=== PATIENT | male | born 1930 | race Caucasian/White ===

== ENCOUNTER 2017-06-18 19:15 | Inpatient (IN) | payer MEDICARE, OTHER, MEDICAID ==
--- NOTE | 2017-06-18 19:47 | ED Physician Chart ---
ED Chief Complaint/HPI - Patient Information Date Seen:: 06/18/17 Time Seen:: 19:15 Chief Complaint:: Leg Redness History of Present Illness:: onset x 3 days of LE redness, swelling, and erythema; no report of trauma, H/as , neck pain, C/P, SOB, Abd. pain, A/N/V/D/c, fever, chills, or urinary s/s; pt' s last tetanus shot: < 5 years; UTD Allergies:: Allergies Allergy/AdvReac Type Severity Reaction Status Date / Time ibuprofen AdvReac Verified 06/18/17 19:22 meperidine HCl [From Demerol] AdvReac Verified 06/18/17 19:22 Sulfa (Sulfonamide AdvReac Verified 06/18/17 19:22 Antibiotics) Vitals:: Vital Signs - 8 hr 06/18/17 19:17 Temp 98.3 F HR 54 RR 18 BP 143/97 O2 Sat % 100 Historian:: Patient, EMS Review:: Nurse's Note Reviewed, Old Chart Reviewed, EMS run form Reviewed ED Review of Systems - Review of Systems General/Constitutional: No fever, No chills, No weight loss, No weakness, No diaphoresis, No edema, No loss of appetite Skin: Skin lesions, Rash, No bruising Head: No headache, No light-headedness Eyes: No loss of vision, No pain, No diplopia ENT: No earache, No nasal drainage, No sore throat, No tinnitus Neck: No neck pain, No swelling, No thyromegaly, No stiffness, No mass noted Cardio Vascular: No chest pain, No palpitations, No PND, No orthopnea, No edema Pulmonary: SOB, Cough, No sputum, Wheezing GI: No nausea, No vomiting, No diarrhea, No pain, No melena, No hematochezia, No constipation, No hematemesis G/U: No dysuria, No frequency, No hematuria, No nacturia Musculoskeletal: No bone or joint pain, No back pain, No muscle pain Endocrine: No polyuria, No polydipsia Psychiatric: Prior psych history, No depression, Anxiety, No suicidal ideation, No homicidal ideation, Auditory hallucination, No visual hallucination Hematopoietic: No bruising, No lymphadenopathy Allergic/Immuno: No urticaria, No angioedema Neurological: No syncope, No focal symptoms, No weakness, No paresthesia, No headache, No seizure, No dizziness, Confusion, No vertigo ED Past Medical History - Past Medical History Obtainable: Yes Past Medical History: HTN, CAD, Asthma/COPD, Dyslipidemia, Thyroid disorder, Dementia Family History: HTN, Cancer Social History: Smoker, No Alcohol, No Drug Use, , Care Facility Surgical History: Pacemaker Psychiatricy History: Schizophrenia, Dementia Medication: Reviewed Family Medical History - Family Member Mother History Unknown: Yes Ethnicity: Unknown Living Status: Unknown Hx Family Cancer: No Hx Family Coronary Artery Disease: No Hx Family Congestive Heart Failure: No Hx Family Hypertension: No Hx Family Stroke: No Hx Family Diabetes: No Hx Family Seizures: No Hx Family Dementia: No Hx Family AIDS: No Hx Family HIV: No Hx Family COPD: No Hx Family Hepatitis: No Hx Family Psychiatric Problems: No Hx Family Tuberculosis: No ED Physical Exam - Physical Examination General/Constitutional: Awake, Well-developed, well-nourished, Alert, No distress, GCS 15, Non-toxic appearing, Ambulatory Head: Atraumatic Eyes: Lids, conjuctiva normal, PERRL, EOMI Other Eyes comments:: + LE Cellulitis Skin: Nl inspection, No rash, No skin lesions, No ecchymosis, Well hydrated, No lymphadenopathy ENMT: External ears, nose nl, TM canals nl, Nasal exam nl, Lips, teeth, gums nl , Oropharynx nl, Tonsils nl Neck: Nontender, Full ROM w/o pain, No JVD, No nuchal rigidity, No bruit, No mass, No stridor Respiratory: Nl effort/Exclusion, Clear to Auscultation, No Wheeze/Rhonchi/Rales Cardio Vascular: RRR, No murmur, gallop, rubs, NL S1 S2, Carotid/Femoral/Distal pulses equal bilaterally GI: No tenderness/rebounding/guarding, No organomegaly, No hernia, Normal BS's, Nondistended, No mass/bruits, No McBurney tenderness : No CVA tenderness Extremities: No tenderness or effusion, Full ROM, normal strength in all extremities, No edema, Normal digits & nails Neuro/Psych: Alert/oriented, DTR's symmetric, Normal sensory exam, Normal motor strength, Judgement/insight normal, Mood normal, Normal gait, No focal deficits Misc: Normal back, No paraspinal tenderness ED Labs/Radiology/EKG Results - Lab Results Comments:: unremarkable - Radiology Results Comments:: NAD - EKG Interpretations EKG Time:: 19:52 Rate & Rhythm: 53; SB Comments:: non-specific st-t changes ED Septic Shock - . Is Septic Shock (SBP<90, OR Lactate>4 mmol\L) present?: No - <6hrs of presentation: Vital Signs: Vital Signs - 8 hr 06/18/17 19:17 Temp 98.3 F HR 54 RR 18 BP 143/97 O2 Sat % 100 ED Reassessment (Disposition) - Reassessment Reassessment Condition:: Improved - Diagnosis Diagnosis:: Cellulitis; LE Cellulitis; Sepsis - Aftercare/Follow up Instructions Aftercare/Follow-Up Instructions:: Counseled pt regarding lab results/diagnosis & need follow up, Counseled pt & family regarding lab results/diagnosis & need follow up - Patient Disposition Discharge/Transfer:: Acute Care w/in this hosp Accepting Physician:: Dr. Gant Time Called:: 2099 Time Responded:: 21:00 Admitted to:: Med/Surg Spoke to:: Dr. Gant Admitting Medical Physician:: Dr. Gant Condition at Disposition:: Stable, Improved
[2017-06-18] MEDS ORDERED: cefTRIAXone 1 GM in Sodium Chloride 0.9% 50 ML IV ONE (19:50)
[2017-06-18 20:10] LABS: % BASOPHILS 0.9 % (0.0-2.0); % EOSINOPHILS 2.7 % (0.0-5.0); % LYMPHOCYTES 20.3 % (20.0-50.0); % MONOCYTES 11.2 % (2.0-10.0); % NEUTROPHILS 64.9 % (40.0-80.0); BASOPHILE ABSOLUTE 0.1 Th/cumm (0-0.2); EOSINOPHILE ABSOLUTE 0.2 Th/cmm (0.1-0.4); HEMOGLOBIN 12.9 gm/dL (12-16); LYMPHOCYTE ABSOLUTE 1.3 Th/cmm (1.5-3.0); MEAN CELL VOLUME 96.8 fl (80-99); MEAN CORPUSCULAR HEMOGLOBIN 31.9 pg (27.0-31.0); MEAN CORPUSCULAR HGB CONC 32.9 pg (28.0-36.0); MEAN PLATELET VOLUME 8.8 fl; MONOCYTE ABSOLUTE 0.7 Th/cmm (0.3-1.0); NEUTROPHILE ABSOLUTE 3.9 Th/cmm (1.8-8.0); PLATELET COUNT 190 Th/cmm (150-400); RED BLOOD COUNT 4.03 Mil/cmm (3.80-5.80); RED CELL DISTRIBUTION WIDTH 14.1 % (11.5-20.0); WHITE BLOOD COUNT 6.2 Th/cmm (4.8-10.8)
[2017-06-18 20:17] LABS: ALB/GLOB RATIO 1.4 (1.0-1.8); ALBUMIN 4.2 gm/dL (4.2-5.5); ALKALINE PHOSPHATASE 61 U/L (34-104); ANION GAP 12.2 (7.0-16.0); BILIRUBIN,TOTAL 0.5 mg/dL (0.3-1.0); BUN - UREA NITROGEN 31 mg/dL (7-25); CALCIUM SERUM 9.4 mg/dL (8.6-10.3); CARBON DIOXIDE 24.9 mEq/L (21.0-31.0); CHLORIDE 105 mEq/L (98-107); CREATININE - SERUM 1.1 mg/dL (0.7-1.3); CREATININE KINASE 104 U/L (30-223); GLUCOSE 114 mg/dL (70-105); POTASSIUM SERUM 4.1 mEq/L (3.5-5.1); SGOT 14 U/L (13-39); SGPT/ALT 11 U/L (7-52); SODIUM SERUM 138 mEq/L (136-145); TOTAL PROTEIN,SERUM 7.2 gm/dL (6.0-8.3)
[2017-06-18 20:20] LABS: INR 1.02 (0.5-1.4); PROTHROMBIN TIME (TEST) 10.6 SECONDS (9.5-11.5)
[2017-06-18] MEDS ORDERED: Magnesium Hydroxide (MOM) 30 mL UDC PO PRN (21:41)
[2017-06-18] MEDS ORDERED: Maalox 30 mL Cup PO PRN (21:44)
[2017-06-18] MEDS ORDERED: Ipratropium Neb 0.5 mg/2.5 mL UD IH PRN (21:44)
[2017-06-18] MEDS ORDERED: Albuterol Nebulizer 2.5mg/3mL IH PRN (21:44)
[2017-06-18] MEDS ORDERED: guaiFENesin 200 MG/10 ML UDC PO PRN (22:47)
[2017-06-19] MEDS: D5-0.9%NS 1,000 ML IV SCH ×2 (00:21→21:37)
[2017-06-19 04:52] VITALS: BP 139/55
[2017-06-19 06:50] LABS: % BASOPHILS 0.8 % (0.0-2.0); % EOSINOPHILS 3.5 % (0.0-5.0); % LYMPHOCYTES 28.4 % (20.0-50.0); % MONOCYTES 11.1 % (2.0-10.0); % NEUTROPHILS 56.2 % (40.0-80.0); EOSINOPHILE ABSOLUTE 0.2 Th/cmm (0.1-0.4); HEMATOCRIT 35.9 % (41.0-60); HEMOGLOBIN 12.1 gm/dL (12-16); LYMPHOCYTE ABSOLUTE 1.6 Th/cmm (1.5-3.0); MEAN CORPUSCULAR HGB CONC 33.7 pg (28.0-36.0); MEAN PLATELET VOLUME 8.9 fl; MONOCYTE ABSOLUTE 0.6 Th/cmm (0.3-1.0); NEUTROPHILE ABSOLUTE 3.3 Th/cmm (1.8-8.0); PLATELET COUNT 177 Th/cmm (150-400); RED BLOOD COUNT 3.78 Mil/cmm (3.80-5.80); RED CELL DISTRIBUTION WIDTH 13.8 % (11.5-20.0); WHITE BLOOD COUNT 5.7 Th/cmm (4.8-10.8)
[2017-06-19] MEDS: Levothyroxine 0.05 Mg Tab PO SCH (07:02)
[2017-06-19 07:10] LABS: ALB/GLOB RATIO 1.2 (1.0-1.8); ALBUMIN 3.3 gm/dL (4.2-5.5); ALKALINE PHOSPHATASE 50 U/L (34-104); ANION GAP 11.8 (7.0-16.0); BILIRUBIN,TOTAL 0.7 mg/dL (0.3-1.0); BUN - UREA NITROGEN 23 mg/dL (7-25); CALCIUM SERUM 8.4 mg/dL (8.6-10.3); CARBON DIOXIDE 19.7 mEq/L (21.0-31.0); CHLORIDE 109 mEq/L (98-107); CREATININE - SERUM 0.9 mg/dL (0.7-1.3); GLUCOSE 98 mg/dL (70-105); POTASSIUM SERUM 3.5 mEq/L (3.5-5.1); SGOT 12 U/L (13-39); SGPT/ALT 8 U/L (7-52); SODIUM SERUM 137 mEq/L (136-145)
--- NOTE | 2017-06-19 07:32 | Diagnostic Imaging Report ---
Bilateral lower extremity DVT study HISTORY: Swelling, rule out DVT COMPARISON: None Technique: Longitudinal and transverse sonographic images of the bilateral lower extremity veins were obtained with doppler analysis. FINDINGS: There is normal compressibility, augmentation and phasicity of the bilateral common femoral, superficial femoral, popliteal, and posterior tibial veins. No thrombus is visualized. IMPRESSION: No evidence of thrombus within the bilateral lower extremity veins.
--- NOTE | 2017-06-19 07:36 | Diagnostic Imaging Report ---
CHEST X-RAY: AP view INDICATION: pain COMPARISON: 08/18/2014 FINDINGS: Exam is limited due to body habitus. A left chest wall pacemaker is seen with lead in the region of the right ventricle. There is also evidence of median sternotomy. Increased interstitial lung markings are seen. Increased bibasilar lung markings are also noted. No definite effusions. Mild cardiomegaly is noted. Degenerative changes of the spine are noted. Left shoulder arthroplasty is noted. Skin fold is seen along the left upper thorax. No evidence of pneumothorax. IMPRESSION: Limited exam due to body habitus. Status post median sternotomy and left chest wall pacemaker placement when compared to prior exam. Please correlate with surgical history. Increased bibasilar lung markings, which may be chronic. Superimposed infiltrate cannot be excluded. Recommend clinical correlation. If indicated, CT would provide additional detail and assessment. Mild cardiomegaly.
[2017-06-19] MEDS: Ipratropium Neb 0.5 mg/2.5 mL UD IH SCH ×4 (07:55→18:51)
[2017-06-19] MEDS: Albuterol Nebulizer 2.5mg/3mL HHN SCH ×4 (07:55→18:51)
[2017-06-19] MEDS ORDERED: VTE Chemical Prophylaxis Screen/Admission MC PRN (08:15)
[2017-06-19] MEDS ORDERED: Theophylline 100 mg ER Tab PO SCH (09:00)
[2017-06-19] MEDS: Multivitamin Tab PO SCH (09:21)
[2017-06-19] MEDS: Fish Oil 1,000 MG SGL PO SCH (09:21)
[2017-06-19] MEDS: Polyvinyl Alcohol Ophth Soln 15 mL Bottle EACH EYE SCH ×2 (09:34→16:38)
[2017-06-19] MEDS ORDERED: Pneumococcal Vaccine 0.5 mL Vial IM ONE (10:00)
--- NOTE | 2017-06-19 11:27 | Internal Medicine Prog Note ---
Internal Medicine Subjective - Subjective Service Date: 06/19/17 ([id number] hnp dictated) Internal Medicine Objective - Results Result Diagrams: 06/19/17 06:00 06/19/17 06:00 Recent Labs: Laboratory Last Values WBC 5.7 Th/cmm (4.8-10.8) 06/19/17 06:00 RBC 3.78 Mil/cmm (3.80-5.80) L 06/19/17 06:00 Hgb 12.1 gm/dL (12-16) 06/19/17 06:00 Hct 35.9 % (41.0-60) L 06/19/17 06:00 MCV 95.0 fl (80-99) 06/19/17 06:00 MCH 32.0 pg (27.0-31.0) H 06/19/17 06:00 MCHC Differential 33.7 pg (28.0-36.0) 06/19/17 06:00 RDW 13.8 % (11.5-20.0) 06/19/17 06:00 Plt Count 177 Th/cmm (150-400) 06/19/17 06:00 MPV 8.9 fl 06/19/17 06:00 Neutrophils % 56.2 % (40.0-80.0) 06/19/17 06:00 Lymphocytes % 28.4 % (20.0-50.0) 06/19/17 06:00 Monocytes % 11.1 % (2.0-10.0) H 06/19/17 06:00 Eosinophils % 3.5 % (0.0-5.0) 06/19/17 06:00 Basophils % 0.8 % (0.0-2.0) 06/19/17 06:00 PT 10.6 SECONDS (9.5-11.5) 06/18/17 19:45 INR 1.02 (0.5-1.4) 06/18/17 19:45 PTT (Actin FS) 29.0 SECONDS (26.0-38.0) 06/18/17 19:45 Sodium 137 mEq/L (136-145) 06/19/17 06:00 Potassium 3.5 mEq/L (3.5-5.1) 06/19/17 06:00 Chloride 109 mEq/L (98-107) H 06/19/17 06:00 Carbon Dioxide 19.7 mEq/L (21.0-31.0) L 06/19/17 06:00 Anion Gap 11.8 (7.0-16.0) 06/19/17 06:00 BUN 23 mg/dL (7-25) 06/19/17 06:00 Creatinine 0.9 mg/dL (0.7-1.3) 06/19/17 06:00 Est GFR ( Amer) TNP 06/19/17 06:00 Est GFR (Non-Af Amer) TNP 06/19/17 06:00 BUN/Creatinine Ratio 25.6 06/19/17 06:00 Glucose 98 mg/dL (70-105) 06/19/17 06:00 Whole Bld Lactic Acid 1.10 mmol/L (0.60-1.99) 06/18/17 19:45 Calcium 8.4 mg/dL (8.6-10.3) L 06/19/17 06:00 Total Bilirubin 0.7 mg/dL (0.3-1.0) 06/19/17 06:00 AST 12 U/L (13-39) L 06/19/17 06:00 ALT 8 U/L (7-52) 06/19/17 06:00 Alkaline Phosphatase 50 U/L (34-104) 06/19/17 06:00 Creatine Kinase 104 U/L (30-223) 06/18/17 19:45 Troponin I 0.02 ng/mL (0.01-0.05) 06/18/17 19:45 B-Natriuretic Peptide 298.0 pg/mL (5.0-100.0) H 06/19/17 06:00 Total Protein 6.0 gm/dL (6.0-8.3) 06/19/17 06:00 Albumin 3.3 gm/dL (4.2-5.5) L 06/19/17 06:00 Globulin 2.7 gm/dL 06/19/17 06:00 Albumin/Globulin Ratio 1.2 (1.0-1.8) 06/19/17 06:00 - Physical Exam Vitals and I&O: Vital Signs Temp 97.3 F 06/19/17 08:47 Pulse 56 06/19/17 09:37 Resp 16 06/19/17 09:34 BP 110/60 06/19/17 09:37 Pulse Ox 96 06/19/17 08:47 Intake & Output 06/18/17 06/19/17 06/19/17 18:59 06:59 18:59 Intake Total 50 Balance 50 Weight (lbs) 188 lb 1.6 oz Intake: Intake, IV Amount 50 cefTRIAXone 1 gm In 50 Sodium Chloride 0.9% 50 ml @ 100 mls/hr IV X1 ONE Rx#:[id number] Other: # Voids 1 Weight Source Bedscale Active Medications: Current Medications Acetaminophen (Tylenol) 650 mg PO Q4HR PRN PRN Reason: Pain Or Fever above 101 Stop: 08/17/17 21:43 Al Hydrox/Mg Hydrox/Simethicone (Maalox) 30 ml PO Q6HR PRN PRN Reason: Dyspepsia Stop: 08/17/17 21:43 Albuterol Sulfate (Albuterol 2.5mg/3ml Neb Ud) 2.5 mg IH Q2HR PRN PRN Reason: Shortness of Breath or Wheeze Stop: 08/17/17 21:43 Albuterol Sulfate (Albuterol 2.5mg/3ml Neb Ud) 2.5 mg HHN QIDRT [facility] Stop: 08/18/17 06:59 Last Admin: 06/19/17 07:55 Dose: 2.5 mg Amlodipine Besylate (Norvasc) 5 mg PO DAILY [facility] Stop: 08/18/17 08:59 Last Admin: 06/19/17 09:37 Dose: 5 mg Artificial Tears (Artificial Tears Ophth Soln) 1 drop EACH EYE BID [facility] Stop: 08/18/17 08:59 Last Admin: 06/19/17 09:34 Dose: 1 drop Baclofen (Lioresal) 10 mg PO HS [facility] Stop: 08/18/17 20:59 Docusate Sodium (Colace) 100 mg PO BID [facility] Stop: 08/18/17 08:59 Last Admin: 06/19/17 09:21 Dose: 100 mg Donepezil HCl (Aricept) 5 mg PO HS [facility] Stop: 08/18/17 20:59 Duloxetine HCl (Cymbalta) 30 mg PO DAILY [facility] PRN Reason: Protocol Stop: 08/18/17 08:59 Last Admin: 06/19/17 09:21 Dose: 30 mg Fish Oil ([place] 3) 1,000 mg PO DAILY [facility] Stop: 08/18/17 08:59 Last Admin: 06/19/17 09:21 Dose: 1,000 mg Furosemide (Lasix) 20 mg IVP BID [facility] Stop: 08/18/17 08:59 Last Admin: 06/19/17 09:28 Dose: 20 mg Guaifenesin (Robitussin) 200 mg PO Q4HR PRN PRN Reason: Cough or Congestion Stop: 08/17/17 22:46 Heparin Sodium (Porcine) (Heparin) 5,000 units SUBQ Q12HR [facility] Stop: 08/18/17 08:59 Last Admin: 06/19/17 09:21 Dose: 5,000 units Dextrose/Sodium Chloride (D5-0.9%Ns) 1,000 mls @ 50 mls/hr IV .Q20H [facility] Stop: 08/17/17 21:44 Last Admin: 06/19/17 00:21 Dose: 50 mls/hr Ipratropium Excello (Atrovent Neb 0.5mg/2.5ml) 0.5 mg IH Q2HR PRN PRN Reason: Shortness of Breath or Wheeze Stop: 08/17/17 21:43 Ipratropium Excello (Atrovent Neb 0.5mg/2.5ml) 0.5 mg IH QIDRT [facility] Stop: 08/18/17 06:59 Last Admin: 06/19/17 07:55 Dose: 0.5 mg Levothyroxine Sodium (Synthroid) 0.05 mg PO QDAC [facility] Stop: 08/18/17 07:29 Last Admin: 06/19/17 07:02 Dose: 0.05 mg Lorazepam (Ativan) 1 mg IV Q4HR PRN; Protocol PRN Reason: Anxiety Stop: 08/17/17 21:43 Magnesium Hydroxide (Milk Of Magnesia) 30 ml PO HS PRN PRN Reason: Constipation Stop: 08/17/17 21:40 Miscellaneous (Vte Chemical Prophylaxis Screen/ Admission) 1 ea [facility] PRN PRN PRN Reason: PROTOCOL Stop: 08/18/17 08:14 Multivitamins/Vitamin C (Theragran) 1 tab PO DAILY [facility] Stop: 08/18/17 08:59 Last Admin: 04/26/18 09:21 Dose: 1 tab Nitroglycerin (Nitrostat) 0.4 mg SL Q5MIN PRN PRN Reason: Chest Pain Stop: 08/17/17 22:46 Ondansetron HCl (Zofran) 4 mg IV Q8H PRN PRN Reason: Nausea / Vomiting Stop: 08/17/17 22:46 Simvastatin (Zocor) 20 mg PO HS [facility] Stop: 08/18/17 20:59 Tamsulosin HCl (Flomax) 0.4 mg PO HS [facility] Stop: 08/18/17 20:59 - Procedures Procedures: Procedures Procedure Code Date OTHER GROUP THERAPY 94.44 08/12/14
--- NOTE | 2017-06-19 14:49 | History & Physical ---
ADMIT DATE: 06/19/2017 DICTATED FOR: Dr. Anibal Gant CHIEF COMPLAINT: Bilateral leg redness. HISTORY OF PRESENT ILLNESS: This is an 86-year-old male who is well known to me from [facility], was brought here to [facility] due to a 3-day history of bilateral lower extremity swelling associated with redness and pain. The patient did not have any fevers at the [facility]. For further management, the patient is now admitted here to the telemetry unit. PAST MEDICAL HISTORY: Hypertension, hyperlipidemia, arthritis, depression, constipation and dementia. PAST SURGICAL HISTORY: Pacemaker. ALLERGIES: IBUPROFEN, MEPERIDINE, HYDROCHLORIDE, AND SULFA. FAMILY HISTORY: Noncontributory. SOCIAL HISTORY: The patient is a [facility] resident, requiring 24-hour nursing care. REVIEW OF SYSTEMS: GENERAL: Denies any fevers and chills. CARDIOVASCULAR: Denies any chest pain. RESPIRATORY: Denies shortness of breath. GASTROINTESTINAL: Denies nausea, vomiting, abdominal pain. GENITOURINARY: Denies increased work of dysuria. NEUROLOGIC: No headaches, seizures or syncope. All other systems are reviewed and are negative. PHYSICAL EXAMINATION: GENERAL: This is an elderly male, awake, alert, in no apparent distress. VITAL SIGNS: Temperature 97.3, heart rate 50, blood pressure 107/58, respirations 17, O2 96%. HEENT: Head normocephalic, atraumatic. NECK: Supple. No mass. LUNGS: Few rhonchi. HEART: Regular rate and rhythm. ABDOMEN: Soft, nontender. LABORATORY DATA: WBC 5.7, H and H 11.1 and 35.9, platelets of 177. Sodium 137, potassium 3.5, chloride 109, BUN 23, creatinine of 0.9, BNP of 298, albumin of 3.3. DIAGNOSTIC DATA: The patient had a lower extremity ultrasound done and the impression is no evidence of thrombus within the bilateral lower extremity veins. The patient also had a chest x-ray done and the impression is status post median sternotomy and left chest wall pacemaker placement. When compared to prior exam. increased bibasilar lung markings which may be chronic, superimposed infiltrate cannot be excluded, mild cardiomegaly. ASSESSMENT: Acute CHF exacerbation, bilateral lower extremity pain, acute dehydration, mild protein calorie malnutrition, generalized weakness, hypertension, hyperlipidemia, hypothyroidism, arthritis, dementia. PLAN: The patient to be admitted to the telemetry unit. Keep the patient on IV fluids for hydration. We will monitor the patient's BUN and creatinine. We will get a followup chest x-ray for tomorrow morning. The patient to be on a low sodium diet. We will get psychiatry on the case. We will continue to monitor this patient. JOB# [id number]
--- NOTE | 2017-06-19 15:24 | Cardiology ---
06/18/2017 ECHOCARDIOGRAM REPORT The patient of Dr. Gant. M-MODE ECHOCARDIOGRAM: Mitral valve, anterior leaflet of mitral valve shows normal excursion, EF velocity. Posterior leaflet of the mitral valve shows normal excursion. Left ventricular posterior wall shows increased thickness, normal excursion. Interventricular septum shows increased thickness, normal excursion, hypertrophy of the left ventricle, ejection fraction 50%. Left atrium enlarged 4.8 cm. Aortic root shows normal dimension, normal excursion of aortic leaflets. CONCLUSION: Minimal hypertrophy of the left ventricle. Left atrial enlargement, ejection fraction 50%. 2D ECHO ON THE SAME PATIENT: Long axis view shows normal-sized left ventricle with hypertrophy of the left ventricle. Left atrium enlarged. Aortic root shows normal dimension, normal excursion of aortic leaflets. Short axis view of mitral valve normal. Short axis view of aortic valve normal. Apical four chamber view showed normal-sized left ventricle with hypertrophy of the left ventricle. Left atrium enlarged. Right ventricular cavity, right atrium normal, no pericardial effusion. CONCLUSION: Minimal hypertrophy of the left ventricle. Left atrial enlargement, ejection fraction 50%. Doppler study shows prominent area consistent with poor compliance of left ventricle. The patient has mild tricuspid regurgitation, moderate pulmonary regurgitation, right ventricular systolic pressure 32 mmHg. [facility]# [id number]
[2017-06-20 05:55] LABS: % BASOPHILS 0.4 % (0.0-2.0); % EOSINOPHILS 4.9 % (0.0-5.0); % LYMPHOCYTES 23.4 % (20.0-50.0); % MONOCYTES 9.5 % (2.0-10.0); % NEUTROPHILS 61.8 % (40.0-80.0); EOSINOPHILE ABSOLUTE 0.3 Th/cmm (0.1-0.4); HEMATOCRIT 36.3 % (41.0-60); HEMOGLOBIN 12.3 gm/dL (12-16); LYMPHOCYTE ABSOLUTE 1.4 Th/cmm (1.5-3.0); MEAN CORPUSCULAR HEMOGLOBIN 32.6 pg (27.0-31.0); MEAN PLATELET VOLUME 8.8 fl; MONOCYTE ABSOLUTE 0.6 Th/cmm (0.3-1.0); NEUTROPHILE ABSOLUTE 3.8 Th/cmm (1.8-8.0); PLATELET COUNT 180 Th/cmm (150-400); RED BLOOD COUNT 3.78 Mil/cmm (3.80-5.80); RED CELL DISTRIBUTION WIDTH 14.2 % (11.5-20.0); WHITE BLOOD COUNT 6.1 Th/cmm (4.8-10.8)
[2017-06-20 06:03] LABS: ANION GAP 11.3 (7.0-16.0); BUN - UREA NITROGEN 19 mg/dL (7-25); CALCIUM SERUM 8.4 mg/dL (8.6-10.3); CARBON DIOXIDE 22.1 mEq/L (21.0-31.0); CHLORIDE 109 mEq/L (98-107); GLUCOSE 103 mg/dL (70-105); POTASSIUM SERUM 3.4 mEq/L (3.5-5.1); SODIUM SERUM 139 mEq/L (136-145)
[2017-06-20] MEDS: Levothyroxine 0.05 Mg Tab PO SCH (06:48)
[2017-06-20] MEDS: Ipratropium Neb 0.5 mg/2.5 mL UD IH SCH ×4 (07:25→18:49)
[2017-06-20] MEDS: Albuterol Nebulizer 2.5mg/3mL HHN SCH ×4 (07:25→18:49)
[2017-06-20] MEDS: Fish Oil 1,000 MG SGL PO SCH (09:24)
[2017-06-20] MEDS: Multivitamin Tab PO SCH (09:24)
[2017-06-20] MEDS ORDERED: Potassium Chloride 20 mEq ER Tab PO ONE (12:48)
--- NOTE | 2017-06-20 12:53 | Internal Medicine Prog Note ---
Internal Medicine Subjective - Subjective Patient seen and examined:: with staff, chart reviewed Patient is:: awake, verbal, interactive, in bed, denies any new complaints, agitated, confused Patient Complaints of:: congestion, unable to sleep Per staff patient has:: no adverse event, no episodes of fall, poor appetite, poor oral intake, unstable gait, noncompliant, confused, tolerating meds Internal Medicine Objective - Results Result Diagrams: 06/20/17 05:40 06/20/17 05:40 Recent Labs: Laboratory Last Values WBC 6.1 Th/cmm (4.8-10.8) 06/20/17 05:40 RBC 3.78 Mil/cmm (3.80-5.80) L 06/20/17 05:40 Hgb 12.3 gm/dL (12-16) 06/20/17 05:40 Hct 36.3 % (41.0-60) L 06/20/17 05:40 MCV 96.0 fl (80-99) 06/20/17 05:40 MCH 32.6 pg (27.0-31.0) H 06/20/17 05:40 MCHC Differential 34.0 pg (28.0-36.0) 06/20/17 05:40 RDW 14.2 % (11.5-20.0) 06/20/17 05:40 Plt Count 180 Th/cmm (150-400) 06/20/17 05:40 MPV 8.8 fl 06/20/17 05:40 Neutrophils % 61.8 % (40.0-80.0) 06/20/17 05:40 Lymphocytes % 23.4 % (20.0-50.0) 06/20/17 05:40 Monocytes % 9.5 % (2.0-10.0) 06/20/17 05:40 Eosinophils % 4.9 % (0.0-5.0) 06/20/17 05:40 Basophils % 0.4 % (0.0-2.0) 06/20/17 05:40 PT 10.6 SECONDS (9.5-11.5) 06/18/17 19:45 INR 1.02 (0.5-1.4) 06/18/17 19:45 PTT (Actin FS) 29.0 SECONDS (26.0-38.0) 06/18/17 19:45 Sodium 139 mEq/L (136-145) 06/20/17 05:40 Potassium 3.4 mEq/L (3.5-5.1) L 06/20/17 05:40 Chloride 109 mEq/L (98-107) H 06/20/17 05:40 Carbon Dioxide 22.1 mEq/L (21.0-31.0) 06/20/17 05:40 Anion Gap 11.3 (7.0-16.0) 06/20/17 05:40 BUN 19 mg/dL (7-25) 06/20/17 05:40 Creatinine 1.0 mg/dL (0.7-1.3) 06/20/17 05:40 Est GFR ( Amer) TNP 06/20/17 05:40 Est GFR (Non-Af Amer) TNP 06/20/17 05:40 BUN/Creatinine Ratio 19.0 06/20/17 05:40 Glucose 103 mg/dL (70-105) 06/20/17 05:40 Whole Bld Lactic Acid 1.10 mmol/L (0.60-1.99) 06/18/17 19:45 Calcium 8.4 mg/dL (8.6-10.3) L 06/20/17 05:40 Total Bilirubin 0.7 mg/dL (0.3-1.0) 06/19/17 06:00 AST 12 U/L (13-39) L 06/19/17 06:00 ALT 8 U/L (7-52) 06/19/17 06:00 Alkaline Phosphatase 50 U/L (34-104) 06/19/17 06:00 Ammonia 43 umol/L (16-53) 06/20/17 05:40 Creatine Kinase 104 U/L (30-223) 06/18/17 19:45 Troponin I 0.02 ng/mL (0.01-0.05) 06/18/17 19:45 B-Natriuretic Peptide 298.0 pg/mL (5.0-100.0) H 06/19/17 06:00 Total Protein 6.0 gm/dL (6.0-8.3) 06/19/17 06:00 Albumin 3.3 gm/dL (4.2-5.5) L 06/19/17 06:00 Globulin 2.7 gm/dL 06/19/17 06:00 Albumin/Globulin Ratio 1.2 (1.0-1.8) 06/19/17 06:00 - Physical Exam Vitals and I&O: Vital Signs Temp 98.4 F 06/20/17 11:52 Pulse 84 06/20/17 11:52 Resp 19 06/20/17 11:52 BP 106/46 06/20/17 11:52 Pulse Ox 96 06/20/17 11:52 Intake & Output 06/19/17 06/20/17 06/20/17 18:59 06:59 18:59 Intake Total 1200 Output Total 1 Balance 1199 Weight (lbs) 85.275 kg 86.183 kg Intake: Intake, IV Amount 1000 D5-0.9%Ns 1,000 ml @ 50 1000 mls/hr IV .Q20H [facility] Rx#: [id number] Oral 200 Output: Stool 1 Other: # Voids 3 # Bowel Movements 1 Stool Characteristics Formed Weight Source Bedscale Bedscale Active Medications: Current Medications Acetaminophen (Tylenol) 650 mg PO Q4HR PRN PRN Reason: Pain Or Fever above 101 Stop: 08/17/17 21:43 Al Hydrox/Mg Hydrox/Simethicone (Maalox) 30 ml PO Q6HR PRN PRN Reason: Dyspepsia Stop: 08/17/17 21:43 Albuterol Sulfate (Albuterol 2.5mg/3ml Neb Ud) 2.5 mg IH Q2HR PRN PRN Reason: Shortness of Breath or Wheeze Stop: 08/17/17 21:43 Albuterol Sulfate (Albuterol 2.5mg/3ml Neb Ud) 2.5 mg HHN QIDRT COUNT INCLUDES THE [facility] Stop: 08/18/17 06:59 Last Admin: 06/20/17 10:51 Dose: 2.5 mg Amlodipine Besylate (Norvasc) 5 mg PO DAILY COUNT INCLUDES [facility] Stop: 08/18/17 08:59 Last Admin: 06/20/17 09:24 Dose: Not Given Artificial Tears (Artificial Tears Ophth Soln) 1 drop EACH EYE BID [facility]CCA Stop: 08/18/17 08:59 Last Admin: 06/19/17 16:38 Dose: 1 drop Baclofen (Lioresal) 10 mg PO HS COUNT INCLUDES [facility] Stop: 08/18/17 20:59 Last Admin: 06/19/17 21:35 Dose: 10 mg Docusate Sodium (Colace) 100 mg PO BID [facility] Stop: 08/18/17 08:59 Last Admin: 06/20/17 09:24 Dose: 100 mg Donepezil HCl (Aricept) 5 mg PO HS [facility] Stop: 08/19/17 20:59 Duloxetine HCl (Cymbalta) 30 mg PO DAILY [facility] PRN Reason: Protocol Stop: 08/18/17 08:59 Last Admin: 06/20/17 09:24 Dose: 30 mg Fish Oil ([place] 3) 1,000 mg PO DAILY [facility] Stop: 08/18/17 08:59 Last Admin: 06/20/17 09:24 Dose: 1,000 mg Furosemide (Lasix) 20 mg IVP BID [facility] Stop: 08/18/17 08:59 Last Admin: 06/20/17 09:23 Dose: 20 mg Guaifenesin (Robitussin) 200 mg PO Q4HR PRN PRN Reason: Cough or Congestion Stop: 08/17/17 22:46 Heparin Sodium (Porcine) (Heparin) 5,000 units SUBQ Q12HR [facility] Stop: 08/18/17 08:59 Last Admin: 06/20/17 09:22 Dose: 5,000 units Dextrose/Sodium Chloride (D5-0.9%Ns) 1,000 mls @ 50 mls/hr IV .Q20H [facility] Stop: 08/17/17 21:44 Last Admin: 06/19/17 21:37 Dose: 50 mls/hr Ipratropium [place] (Atrovent Neb 0.5mg/2.5ml) 0.5 mg IH Q2HR PRN PRN Reason: Shortness of Breath or Wheeze Stop: 08/17/17 21:43 Ipratropium [place] (Atrovent Neb 0.5mg/2.5ml) 0.5 mg IH QIDRT [facility] Stop: 08/18/17 06:59 Last Admin: 06/20/17 10:51 Dose: 0.5 mg Levothyroxine Sodium (Synthroid) 0.05 mg PO QDAC [facility] Stop: 08/18/17 07:29 Last Admin: 06/20/17 06:48 Dose: 0.05 mg Lorazepam (Ativan) 1 mg IV Q4HR PRN; Protocol PRN Reason: Anxiety Stop: 08/17/17 21:43 Magnesium Hydroxide (Milk Of Magnesia) 30 ml PO HS PRN PRN Reason: Constipation Stop: 08/17/17 21:40 Miscellaneous (Vte Chemical Prophylaxis Screen/ Admission) 1 ea [facility] PRN PRN PRN Reason: PROTOCOL Stop: 08/18/17 08:14 Multivitamins/Vitamin C (Theragran) 1 tab PO DAILY [facility] Stop: 08/18/17 08:59 Last Admin: 06/20/17 09:24 Dose: 1 tab Nitroglycerin (Nitrostat) 0.4 mg SL Q5MIN PRN PRN Reason: Chest Pain Stop: 08/17/17 22:46 Ondansetron HCl (Zofran) 4 mg IV Q8H PRN PRN Reason: Nausea / Vomiting Stop: 08/17/17 22:46 Potassium Chloride (Klor-Con) 20 meq PO X1 ONE Stop: 06/20/17 12:49 Simvastatin (Zocor) 20 mg PO HS [facility]CCA Stop: 08/18/17 20:59 Last Admin: 06/19/17 21:35 Dose: 20 mg Tamsulosin HCl (Flomax) 0.4 mg PO HS RE[facility]CCA Stop: 08/18/17 20:59 Last Admin: 06/19/17 21:35 Dose: 0.4 mg Theophylline (Oral-Dur) 100 mg PO BID [facility]CCA Stop: 08/19/17 16:59 General: demented, bilateral temporal wasting, appears older HEENT: NC/AT, PERRLA Neck: Supple, No JVD Lungs: congested, rales, ronchi Cardiovascular: RRR, with murmur, dwayne Abdomen: soft, tender, globular, positive bowel sound Extremities: excoriation, deformity Neurological: no change, disorganized, unsteady, unable to follow command, bedbound - Procedures Procedures: Procedures Procedure Code Date OTHER GROUP THERAPY 94.44 08/12/14 Internal Medicine Assmt/Plan - Assessment Assessment: acute chf exac ble edema dehydration malnutrition gen weakness htn hyper chol oa hypothroidism dwayne, pacemaker dementia - Plan Plan: cont on lasix will correct lytes card referral monitor renal function cpm pscy follow up as well ernie hill
[2017-06-20] MEDS: Potassium Chloride 20 mEq ER Tab PO SCH (14:41)
[2017-06-20] MEDS: Polyvinyl Alcohol Ophth Soln 15 mL Bottle EACH EYE SCH ×2 (15:31→16:58)
[2017-06-20] MEDS: Theophylline 100 mg ER Tab PO SCH (16:57)
[2017-06-20 19:02] LABS: A1C % 6.6 % (4.0-6.0)
--- NOTE | 2017-06-20 19:56 | Consultation ---
DATE OF CONSULTATION: 06/20/2017 REQUESTING PHYSICIAN: Anibal Gant D.O. REASON FOR CONSULTATION: Psychosis. HISTORY OF PRESENT ILLNESS: This patient is an 86-year-old from [facility]. Information obtained by directly interviewing the patient as well as reviewing the admission papers. The patient has been admitted for bilateral lower extremity swelling, redness and pain. A psychiatric consult is called to address the issue of the mood swings for the patient. Chart is reviewed. The patient is interviewed and patient is known to me from the previous psychiatric hospitalizations and treatments. The patient has been diagnosed to have psychosis and dementia and has a history of being aggressive towards the staff. At this time, the patient is cooperative. However, the patient gets easily frustrated when needs are not met. Review of the chart indicated that the patient has been getting the duloxetine 30 mg on a daily basis and the patient is reported to have been able to tolerate. PAST PSYCHIATRIC HISTORY: The patient had been hospitalized here at [facility] and the [facility] in the past for the depression. The patient is going to be closely monitored at this time with the [facility] and patient is going to be followed up. MENTAL STATUS EXAMINATION: At the time of the evaluation, the patient's mood is noted to be less irritable. Affect is appropriate. Insight and judgment at this time are noted to be improved and fair. Impulse control seems to be fair. No aggressive behavior is reported. The patient denies any auditory hallucinations or delusions are noted. However, the patient has both short-term and long-term memory deficits. DIAGNOSTIC IMPRESSION: AXIS 1: Major depressive disorder by history. AXIS 1B: Dementia and behavioral change, secondary trait. Immediate treatment plan. The patient is going to be observed on inpatient unit, provided with supportive psychotherapy. The patient is going to be closely monitored and encouraged to participate in the groups and verbalize the concerns. Once stabilized, the patient is going to be discharged to the [facility] for further care. Thank you, Dr. Gant for allowing me to participate in the care of the patient. JOB# [id number]
[2017-06-20] MEDS: D5-0.9%NS 1,000 ML IV SCH (21:12)
--- NOTE | 2017-06-20 22:01 | Consultation ---
DATE OF CONSULTATION: 06/20/[address] Gant. HISTORY OF PRESENT ILLNESS: This is an 86-year-old male patient who was transferred to the hospital with swelling both lower extremities. The patient was found to have congestive heart failure. The patient has a cardiac evaluation in view of pacemaker and congestive heart failure. No history of PND or orthopnea. PAST MEDICAL HISTORY: Congestive heart failure, diastolic dysfunction, sick sinus syndrome with pacemaker, hypertension, hypothyroid, hyperlipidemia, depression, dementia, and chronic constipation. FAMILY HISTORY: Unremarkable. SOCIAL HISTORY: No history of smoking or alcohol abuse. ALLERGIES: No known allergies. PHYSICAL EXAMINATION: VITAL SIGNS: Blood pressure 130/80, pulse 60, and respirations 28. HEAD: Normocephalic. No lumps or bumps. EYES: Pupils equal, reactive to light. Fundi showing AV nicking, sclerae white, conjunctivae pink. NECK: Carotid 2+. Normal upstroke. JVD flat. Thyroid not palpable. Lymph nodes not palpable. CHEST: Shows increased AP diameter. No kyphosis, scoliosis. LUNGS: Bilateral rales. Decreased breath sounds both the bases. HEART: PMI sixth intercostal space with lateral to midclavicular line. S1, S2, S3, S4, soft systolic murmur. ABDOMEN: Soft. Liver, spleen not palpable. No organomegaly. Bowel sounds active. NEUROLOGIC: No focal neurological deficit. EXTREMITIES: Peripheral pulses 1+. Minimal pedal edema. CLINICAL IMPRESSION: Congestive heart failure, diastolic dysfunction, acute; sick sinus syndrome with pacemaker; moderate pulmonary regurgitation; hypertension; hypothyroid; hyperlipidemia; depression; dementia; and chronic constipation. The patient had echocardiogram, which showed ejection fraction 50%. Left ventricular hypertrophy, left atrial enlargement, mild tricuspid regurgitation, moderate pulmonary regurgitation. PLAN: We will continue present care. Continue diuretics and monitor the patient. JOB# [id number]
[2017-06-21 05:46] LABS: % BASOPHILS 0.4 % (0.0-2.0); % EOSINOPHILS 3.4 % (0.0-5.0); % LYMPHOCYTES 18.6 % (20.0-50.0); % MONOCYTES 10.3 % (2.0-10.0); % NEUTROPHILS 67.3 % (40.0-80.0); EOSINOPHILE ABSOLUTE 0.3 Th/cmm (0.1-0.4); HEMATOCRIT 37.8 % (41.0-60); HEMOGLOBIN 12.9 gm/dL (12-16); LYMPHOCYTE ABSOLUTE 1.4 Th/cmm (1.5-3.0); MEAN CELL VOLUME 95.5 fl (80-99); MEAN CORPUSCULAR HEMOGLOBIN 32.5 pg (27.0-31.0); MEAN PLATELET VOLUME 8.7 fl; MONOCYTE ABSOLUTE 0.8 Th/cmm (0.3-1.0); PLATELET COUNT 180 Th/cmm (150-400); RED BLOOD COUNT 3.96 Mil/cmm (3.80-5.80); WHITE BLOOD COUNT 7.5 Th/cmm (4.8-10.8)
[2017-06-21 06:05] LABS: ANION GAP 10.8 (7.0-16.0); BUN - UREA NITROGEN 18 mg/dL (7-25); CALCIUM SERUM 8.6 mg/dL (8.6-10.3); CARBON DIOXIDE 24.5 mEq/L (21.0-31.0); CHLORIDE 110 mEq/L (98-107); GLUCOSE 106 mg/dL (70-105); MAGNESIUM 1.9 mg/dL (1.9-2.7); POTASSIUM SERUM 3.3 mEq/L (3.5-5.1); SODIUM SERUM 142 mEq/L (136-145)
[2017-06-21] MEDS: Levothyroxine 0.05 Mg Tab PO SCH (06:47)
[2017-06-21] MEDS: Albuterol Nebulizer 2.5mg/3mL HHN SCH ×4 (07:17→19:17)
[2017-06-21] MEDS: Ipratropium Neb 0.5 mg/2.5 mL UD IH SCH ×4 (07:17→19:17)
[2017-06-21] MEDS: Multivitamin Tab PO SCH (08:09)
[2017-06-21] MEDS: Polyvinyl Alcohol Ophth Soln 15 mL Bottle EACH EYE SCH ×2 (08:09→16:32)
[2017-06-21] MEDS: Fish Oil 1,000 MG SGL PO SCH (08:09)
[2017-06-21] MEDS: Theophylline 100 mg ER Tab PO SCH ×2 (08:09→16:32)
[2017-06-21] MEDS: Potassium Chloride 20 mEq ER Tab PO SCH (08:09)
[2017-06-21] MEDS ORDERED: Potassium Chloride 20 mEq ER Tab PO ONE (12:50)
[2017-06-21] MEDS: D5-0.9%NS 1,000 ML IV SCH (13:09)
--- NOTE | 2017-06-21 13:47 | Internal Medicine Prog Note ---
Internal Medicine Subjective - Subjective Service Date: 06/21/17 Patient is:: awake, verbal, interactive, in bed, denies any new complaints, agitated, confused Patient Complaints of:: congestion, unable to sleep Per staff patient has:: no adverse event, no episodes of fall, poor appetite, poor oral intake, unstable gait, noncompliant, confused, tolerating meds Internal Medicine Objective - Results Result Diagrams: 06/21/17 05:40 06/21/17 05:40 Recent Labs: Laboratory Last Values WBC 7.5 Th/cmm (4.8-10.8) 06/21/17 05:40 RBC 3.96 Mil/cmm (3.80-5.80) 06/21/17 05:40 Hgb 12.9 gm/dL (12-16) 06/21/17 05:40 Hct 37.8 % (41.0-60) L 06/21/17 05:40 MCV 95.5 fl (80-99) 06/21/17 05:40 MCH 32.5 pg (27.0-31.0) H 06/21/17 05:40 MCHC Differential 34.0 pg (28.0-36.0) 06/21/17 05:40 RDW 14.0 % (11.5-20.0) 06/21/17 05:40 Plt Count 180 Th/cmm (150-400) 06/21/17 05:40 MPV 8.7 fl 06/21/17 05:40 Neutrophils % 67.3 % (40.0-80.0) 06/21/17 05:40 Lymphocytes % 18.6 % (20.0-50.0) L 06/21/17 05:40 Monocytes % 10.3 % (2.0-10.0) H 06/21/17 05:40 Eosinophils % 3.4 % (0.0-5.0) 06/21/17 05:40 Basophils % 0.4 % (0.0-2.0) 06/21/17 05:40 PT 10.6 SECONDS (9.5-11.5) 06/18/17 19:45 INR 1.02 (0.5-1.4) 06/18/17 19:45 PTT (Actin FS) 29.0 SECONDS (26.0-38.0) 06/18/17 19:45 Sodium 142 mEq/L (136-145) 06/21/17 05:40 Potassium 3.3 mEq/L (3.5-5.1) L 06/21/17 05:40 Chloride 110 mEq/L (98-107) H 06/21/17 05:40 Carbon Dioxide 24.5 mEq/L (21.0-31.0) 06/21/17 05:40 Anion Gap 10.8 (7.0-16.0) 06/21/17 05:40 BUN 18 mg/dL (7-25) 06/21/17 05:40 Creatinine 1.0 mg/dL (0.7-1.3) 06/21/17 05:40 Est GFR ( Amer) TNP 06/21/17 05:40 Est GFR (Non-Af Amer) TNP 06/21/17 05:40 BUN/Creatinine Ratio 18.0 06/21/17 05:40 Glucose 106 mg/dL (70-105) H 06/21/17 05:40 Hemoglobin A1c % 6.6 % (4.0-6.0) H 06/20/17 05:40 Whole Bld Lactic Acid 1.10 mmol/L (0.60-1.99) 06/18/17 19:45 Calcium 8.6 mg/dL (8.6-10.3) 06/21/17 05:40 Magnesium 1.9 mg/dL (1.9-2.7) 06/21/17 05:40 Total Bilirubin 0.7 mg/dL (0.3-1.0) 06/19/17 06:00 AST 12 U/L (13-39) L 06/19/17 06:00 ALT 8 U/L (7-52) 06/19/17 06:00 Alkaline Phosphatase 50 U/L (34-104) 06/19/17 06:00 Ammonia 43 umol/L (16-53) 06/20/17 05:40 Creatine Kinase 104 U/L (30-223) 06/18/17 19:45 Troponin I 0.02 ng/mL (0.01-0.05) 06/18/17 19:45 B-Natriuretic Peptide 537.0 pg/mL (5.0-100.0) H 06/21/17 05:40 Total Protein 6.0 gm/dL (6.0-8.3) 06/19/17 06:00 Albumin 3.3 gm/dL (4.2-5.5) L 06/19/17 06:00 Globulin 2.7 gm/dL 06/19/17 06:00 Albumin/Globulin Ratio 1.2 (1.0-1.8) 06/19/17 06:00 - Physical Exam Vitals and I&O: Vital Signs Temp 97.4 F 06/21/17 11:57 Pulse 52 06/21/17 11:57 Resp 19 06/21/17 11:57 BP 127/63 06/21/17 11:57 Pulse Ox 99 06/21/17 11:57 Intake & Output 06/20/17 06/21/17 06/21/17 18:59 06:59 18:59 Intake Total 1000 750 797.5 Output Total 1 Balance 1000 749 797.5 Weight (lbs) 190 lb 14.4 oz Intake: Intake, IV Amount 1000 797.5 D5-0.9%Ns 1,000 ml @ 50 1000 797.5 mls/hr IV .Q20H [facility] Rx#: [id number] Oral 750 Output: Stool 1 Other: # Voids 4 # Bowel Movements 1 Stool Characteristics Soft Formed Weight Source Bedscale Active Medications: Current Medications Acetaminophen (Tylenol) 650 mg PO Q4HR PRN PRN Reason: Pain Or Fever above 101 Stop: 08/17/17 21:43 Last Admin: 06/21/17 01:58 Dose: 650 mg Al Hydrox/Mg Hydrox/Simethicone (Maalox) 30 ml PO Q6HR PRN PRN Reason: Dyspepsia Stop: 08/17/17 21:43 Albuterol Sulfate (Albuterol 2.5mg/3ml Neb Ud) 2.5 mg IH Q2HR PRN PRN Reason: Shortness of Breath or Wheeze Stop: 08/17/17 21:43 Albuterol Sulfate (Albuterol 2.5mg/3ml Neb Ud) 2.5 mg HHN QIDRT [facility] Stop: 08/18/17 06:59 Last Admin: 06/21/17 11:00 Dose: 2.5 mg Amlodipine Besylate (Norvasc) 5 mg PO DAILY [facility] Stop: 08/18/17 08:59 Last Admin: 06/21/17 08:11 Dose: 5 mg Artificial Tears (Artificial Tears Ophth Soln) 1 drop EACH EYE BID [facility] Stop: 08/18/17 08:59 Last Admin: 06/21/17 08:09 Dose: 1 drop Baclofen (Lioresal) 10 mg PO HS [facility] Stop: 08/18/17 20:59 Last Admin: 06/20/17 20:46 Dose: 10 mg Docusate Sodium (Colace) 100 mg PO BID [facility] Stop: 08/18/17 08:59 Last Admin: 06/21/17 08:09 Dose: 100 mg Donepezil HCl (Aricept) 5 mg PO HS [facility] Stop: 08/19/17 20:59 Last Admin: 06/20/17 20:46 Dose: 5 mg Duloxetine HCl (Cymbalta) 30 mg PO DAILY [facility] PRN Reason: Protocol Stop: 08/18/17 08:59 Last Admin: 06/21/17 08:09 Dose: 30 mg Fish Oil ([place] 3) 1,000 mg PO DAILY [facility] Stop: 08/18/17 08:59 Last Admin: 06/21/17 08:09 Dose: 1,000 mg Furosemide (Lasix) 20 mg IVP BID [facility] Stop: 08/18/17 08:59 Last Admin: 06/21/17 08:10 Dose: 20 mg Guaifenesin (Robitussin) 200 mg PO Q4HR PRN PRN Reason: Cough or Congestion Stop: 08/17/17 22:46 Heparin Sodium (Porcine) (Heparin) 5,000 units SUBQ Q12HR [facility] Stop: 08/18/17 08:59 Last Admin: 06/21/17 08:10 Dose: 5,000 units Dextrose/Sodium Chloride (D5-0.9%Ns) 1,000 mls @ 50 mls/hr IV .Q20H [facility] Stop: 08/17/17 21:44 Last Admin: 06/21/17 13:09 Dose: 50 mls/hr Ipratropium [place] (Atrovent Neb 0.5mg/2.5ml) 0.5 mg IH Q2HR PRN PRN Reason: Shortness of Breath or Wheeze Stop: 08/17/17 21:43 Ipratropium [place] (Atrovent Neb 0.5mg/2.5ml) 0.5 mg IH QIDRT [facility] Stop: 08/18/17 06:59 Last Admin: 06/21/17 11:01 Dose: 0.5 mg Levothyroxine Sodium (Synthroid) 0.05 mg PO QDAC [facility] Stop: 08/18/17 07:29 Last Admin: 06/21/17 06:47 Dose: 0.05 mg Lorazepam (Ativan) 1 mg IV Q4HR PRN; Protocol PRN Reason: Anxiety Stop: 08/17/17 21:43 Last Admin: 06/21/17 01:44 Dose: 1 mg Magnesium Hydroxide (Milk Of Magnesia) 30 ml PO HS PRN PRN Reason: Constipation Stop: 08/17/17 21:40 Miscellaneous (Vte Chemical Prophylaxis Screen/ Admission) 1 ea [facility] PRN PRN PRN Reason: PROTOCOL Stop: 08/18/17 08:14 Multivitamins/Vitamin C (Theragran) 1 tab PO DAILY [facility] Stop: 08/18/17 08:59 Last Admin: 06/21/17 08:09 Dose: 1 tab Nitroglycerin (Nitrostat) 0.4 mg SL Q5MIN PRN PRN Reason: Chest Pain Stop: 08/17/17 22:46 Ondansetron HCl (Zofran) 4 mg IV Q8H PRN PRN Reason: Nausea / Vomiting Stop: 08/17/17 22:46 Potassium Chloride (Klor-Con) 20 meq PO DAILY [facility] Stop: 08/19/17 12:52 Last Admin: 06/21/17 08:09 Dose: 20 meq Simvastatin (Zocor) 20 mg PO HS [facility] Stop: 08/18/17 20:59 Last Admin: 06/20/17 20:46 Dose: 20 mg Tamsulosin HCl (Flomax) 0.4 mg PO HS [facility] Stop: 08/18/17 20:59 Last Admin: 06/20/17 20:46 Dose: 0.4 mg Theophylline (Oral-Dur) 100 mg PO BID [facility] Stop: 08/19/17 16:59 Last Admin: 06/21/17 08:09 Dose: 100 mg General: demented, bilateral temporal wasting, appears older HEENT: NC/AT, PERRLA Neck: Supple, No JVD Lungs: congested, rales, ronchi Cardiovascular: RRR, with murmur, dwayne Abdomen: soft, tender, globular, positive bowel sound Extremities: excoriation, deformity Neurological: no change, disorganized, unsteady, unable to follow command, bedbound - Procedures Procedures: Procedures Procedure Code Date OTHER GROUP THERAPY 94.44 08/12/14 Internal Medicine Assmt/Plan - Assessment Assessment: acute chf exac ble edema dehydration malnutrition gen weakness htn hyper chol oa hypothroidism dwayne, pacemaker dementia - Plan Plan: cont on lasix monitor renal function cpm [facility] ernie [facility]
[2017-06-21 15:28] LABS: URINE MICROSCOPIC INDICATED? YES; URINE SOURCE MIDSTREAM
[2017-06-21 15:32] LABS: URINE BILIRUBIN NEGATIVE (NEGATIVE); URINE BLOOD NEGATIVE (NEGATIVE); URINE GLUCOSE (UA) NEGATIVE (NEGATIVE); URINE KETONE NEGATIVE (NEGATIVE); URINE LEUKOCYTE ESTERASE TRACE (NEGATIVE); URINE NITRATE NEGATIVE (NEGATIVE); URINE PROTEIN NEGATIVE (NEGATIVE); URINE UROBILINOGEN 0.2 E.U./dL (0.2 - 1.0)
[2017-06-21 15:34] LABS: URINE CLARITY CLEAR (CLEAR); URINE COLOR YELLOW
[2017-06-21 15:39] LABS: URINE BACTERIA 1+ /hpf (NONE SEEN); URINE EPITHELIAL CELLS FEW /lpf (FEW); URINE RBC 0-2 /hpf (0-5)
[2017-06-21 15:40] LABS: URINE FINE GRANULAR CAST 0-2 /lpf (NONE SEEN)
[2017-06-22 05:57] LABS: % BASOPHILS 1.1 % (0.0-2.0); % MONOCYTES 8.3 % (2.0-10.0); % NEUTROPHILS 61.6 % (40.0-80.0); BASOPHILE ABSOLUTE 0.1 Th/cumm (0-0.2); EOSINOPHILE ABSOLUTE 0.3 Th/cmm (0.1-0.4); HEMOGLOBIN 13.1 gm/dL (12-16); LYMPHOCYTE ABSOLUTE 1.3 Th/cmm (1.5-3.0); MEAN CELL VOLUME 95.3 fl (80-99); MEAN CORPUSCULAR HEMOGLOBIN 32.8 pg (27.0-31.0); MEAN CORPUSCULAR HGB CONC 34.4 pg (28.0-36.0); MEAN PLATELET VOLUME 9.2 fl; MONOCYTE ABSOLUTE 0.5 Th/cmm (0.3-1.0); NEUTROPHILE ABSOLUTE 3.5 Th/cmm (1.8-8.0); PLATELET COUNT 184 Th/cmm (150-400); RED BLOOD COUNT 3.99 Mil/cmm (3.80-5.80); WHITE BLOOD COUNT 5.7 Th/cmm (4.8-10.8)
[2017-06-22 06:18] LABS: ANION GAP 11.4 (7.0-16.0); BUN - UREA NITROGEN 14 mg/dL (7-25); CALCIUM SERUM 8.7 mg/dL (8.6-10.3); CARBON DIOXIDE 25.1 mEq/L (21.0-31.0); CHLORIDE 109 mEq/L (98-107); GLUCOSE 108 mg/dL (70-105); POTASSIUM SERUM 3.5 mEq/L (3.5-5.1); SODIUM SERUM 142 mEq/L (136-145)
[2017-06-22] MEDS: Ipratropium Neb 0.5 mg/2.5 mL UD IH SCH ×3 (06:56→14:58)
[2017-06-22] MEDS: Albuterol Nebulizer 2.5mg/3mL HHN SCH ×3 (06:56→14:58)
[2017-06-22] MEDS: Levothyroxine 0.05 Mg Tab PO SCH (07:00)
[2017-06-22] MEDS: Multivitamin Tab PO SCH (08:24)
[2017-06-22] MEDS: Potassium Chloride 20 mEq ER Tab PO SCH (08:24)
[2017-06-22] MEDS: Fish Oil 1,000 MG SGL PO SCH (08:24)
[2017-06-22] MEDS: Polyvinyl Alcohol Ophth Soln 15 mL Bottle EACH EYE SCH ×2 (08:26→16:32)
[2017-06-22] MEDS: Theophylline 100 mg ER Tab PO SCH (08:26)
[2017-06-22] MEDS ORDERED: Potassium Chloride 20 mEq ER Tab PO ONE (13:33)
--- NOTE | 2017-06-22 15:38 | Internal Medicine Prog Note ---
Internal Medicine Subjective - Subjective Service Date: 06/22/17 ([id number] ) Patient is:: awake, verbal, interactive, in bed, denies any new complaints, agitated, confused Patient Complaints of:: congestion, unable to sleep Per staff patient has:: no adverse event, no episodes of fall, poor appetite, poor oral intake, unstable gait, noncompliant, confused, tolerating meds Internal Medicine Objective - Results Result Diagrams: 06/22/17 05:27 06/22/17 05:27 Recent Labs: Laboratory Last Values WBC 5.7 Th/cmm (4.8-10.8) 06/22/17 05:27 RBC 3.99 Mil/cmm (3.80-5.80) 06/22/17 05:27 Hgb 13.1 gm/dL (12-16) 06/22/17 05:27 Hct 38.0 % (41.0-60) L 06/22/17 05:27 MCV 95.3 fl (80-99) 06/22/17 05:27 MCH 32.8 pg (27.0-31.0) H 06/22/17 05:27 MCHC Differential 34.4 pg (28.0-36.0) 06/22/17 05:27 RDW 14.0 % (11.5-20.0) 06/22/17 05:27 Plt Count 184 Th/cmm (150-400) 06/22/17 05:27 MPV 9.2 fl 06/22/17 05:27 Neutrophils % 61.6 % (40.0-80.0) 06/22/17 05:27 Lymphocytes % 23.0 % (20.0-50.0) 06/22/17 05:27 Monocytes % 8.3 % (2.0-10.0) 06/22/17 05:27 Eosinophils % 6.0 % (0.0-5.0) H 06/22/17 05:27 Basophils % 1.1 % (0.0-2.0) 06/22/17 05:27 PT 10.6 SECONDS (9.5-11.5) 06/18/17 19:45 INR 1.02 (0.5-1.4) 06/18/17 19:45 PTT (Actin FS) 29.0 SECONDS (26.0-38.0) 06/18/17 19:45 Sodium 142 mEq/L (136-145) 06/22/17 05:27 Potassium 3.5 mEq/L (3.5-5.1) 06/22/17 05:27 Chloride 109 mEq/L (98-107) H 06/22/17 05:27 Carbon Dioxide 25.1 mEq/L (21.0-31.0) 06/22/17 05:27 Anion Gap 11.4 (7.0-16.0) 06/22/17 05:27 BUN 14 mg/dL (7-25) 06/22/17 05:27 Creatinine 1.0 mg/dL (0.7-1.3) 06/22/17 05:27 Est GFR ( Amer) TNP 06/22/17 05:27 Est GFR (Non-Af Amer) TNP 06/22/17 05:27 BUN/Creatinine Ratio 14.0 06/22/17 05:27 Glucose 108 mg/dL (70-105) H 06/22/17 05:27 Hemoglobin A1c % 6.6 % (4.0-6.0) H 06/20/17 05:40 Whole Bld Lactic Acid 1.10 mmol/L (0.60-1.99) 06/18/17 19:45 Calcium 8.7 mg/dL (8.6-10.3) 06/22/17 05:27 Magnesium 1.9 mg/dL (1.9-2.7) 06/21/17 05:40 Total Bilirubin 0.7 mg/dL (0.3-1.0) 06/19/17 06:00 AST 12 U/L (13-39) L 06/19/17 06:00 ALT 8 U/L (7-52) 06/19/17 06:00 Alkaline Phosphatase 50 U/L (34-104) 06/19/17 06:00 Ammonia 43 umol/L (16-53) 06/20/17 05:40 Creatine Kinase 104 U/L (30-223) 06/18/17 19:45 Troponin I 0.02 ng/mL (0.01-0.05) 06/18/17 19:45 B-Natriuretic Peptide 398.0 pg/mL (5.0-100.0) H 06/22/17 05:27 Total Protein 6.0 gm/dL (6.0-8.3) 06/19/17 06:00 Albumin 3.3 gm/dL (4.2-5.5) L 06/19/17 06:00 Globulin 2.7 gm/dL 06/19/17 06:00 Albumin/Globulin Ratio 1.2 (1.0-1.8) 06/19/17 06:00 Urine Source MIDSTREAM 06/21/17 14:00 Urine Color YELLOW 06/21/17 14:00 Urine Clarity CLEAR (CLEAR) 06/21/17 14:00 Urine pH 6.0 (4.6 - 8.0) 06/21/17 14:00 Ur Specific [place] 1.015 (1.005-1.030) 06/21/17 14:00 Urine Protein NEGATIVE mg/dL (NEGATIVE) 06/21/17 14:00 Urine Glucose (UA) NEGATIVE mg/dL (NEGATIVE) 06/21/17 14:00 Urine Ketones NEGATIVE mg/dL (NEGATIVE) 06/21/17 14:00 Urine Blood NEGATIVE (NEGATIVE) 06/21/17 14:00 Urine Nitrate NEGATIVE (NEGATIVE) 06/21/17 14:00 Urine Bilirubin NEGATIVE (NEGATIVE) 06/21/17 14:00 Urine Urobilinogen 0.2 E.U./dL (0.2 - 1.0) 06/21/17 14:00 Ur Leukocyte Esterase TRACE (NEGATIVE) H 06/21/17 14:00 Urine RBC 0-2 /hpf (0-5) H 06/21/17 14:00 Urine WBC 2-5 /hpf (0-5) 06/21/17 14:00 Ur Epithelial Cells FEW /lpf (FEW) 06/21/17 14:00 Urine Bacteria 1+ /hpf (NONE SEEN) H 06/21/17 14:00 Fine Granular Casts 0-2 /lpf (NONE SEEN) H 06/21/17 14:00 Urine Mucus FEW /lpf (FEW) 06/21/17 14:00 - Physical Exam Vitals and I&O: Vital Signs Temp 97.2 F 06/22/17 11:57 Pulse 51 06/22/17 14:59 Resp 14 06/22/17 14:59 BP 114/55 06/22/17 11:57 Pulse Ox 95 06/22/17 14:59 Intake & Output 06/21/17 06/22/17 06/22/17 18:59 06:59 18:59 Intake Total 797.5 562.5 Balance 797.5 562.5 Weight (lbs) 185 lb 12 oz Intake: Intake, IV Amount 797.5 462.5 D5-0.9%Ns 1,000 ml @ 50 797.5 462.5 mls/hr IV .Q20H [facility] Rx#: [id number] Oral 100 Other: # Voids 2 # Bowel Movements 0 Stool Characteristics Soft Formed Weight Source Bedscale Active Medications: Current Medications Acetaminophen (Tylenol) 650 mg PO Q4HR PRN PRN Reason: Pain Or Fever above 101 Stop: 08/17/17 21:43 Last Admin: 06/21/17 01:58 Dose: 650 mg Al Hydrox/Mg Hydrox/Simethicone (Maalox) 30 ml PO Q6HR PRN PRN Reason: Dyspepsia Stop: 08/17/17 21:43 Albuterol Sulfate (Albuterol 2.5mg/3ml Neb Ud) 2.5 mg IH Q2HR PRN PRN Reason: Shortness of Breath or Wheeze Stop: 08/17/17 21:43 Albuterol Sulfate (Albuterol 2.5mg/3ml Neb Ud) 2.5 mg HHN QIDRT [facility] Stop: 08/18/17 06:59 Last Admin: 06/22/17 14:58 Dose: 2.5 mg Amlodipine Besylate (Norvasc) 5 mg PO DAILY [facility] Stop: 08/18/17 08:59 Last Admin: 06/22/17 08:24 Dose: 5 mg Artificial Tears (Artificial Tears Ophth Soln) 1 drop EACH EYE BID [facility] Stop: 08/18/17 08:59 Last Admin: 06/22/17 08:26 Dose: 1 drop Baclofen (Lioresal) 10 mg PO HS [facility] Stop: 08/18/17 20:59 Last Admin: 06/21/17 20:48 Dose: 10 mg Docusate Sodium (Colace) 100 mg PO BID [facility] Stop: 08/18/17 08:59 Last Admin: 06/22/17 08:24 Dose: 100 mg Donepezil HCl (Aricept) 5 mg PO HS [facility] Stop: 08/19/17 20:59 Last Admin: 06/21/17 20:49 Dose: 5 mg Duloxetine HCl (Cymbalta) 30 mg PO DAILY [facility] PRN Reason: Protocol Stop: 08/18/17 08:59 Last Admin: 06/22/17 08:23 Dose: 30 mg Fish Oil ([place] 3) 1,000 mg PO DAILY [facility] Stop: 08/18/17 08:59 Last Admin: 06/22/17 08:24 Dose: 1,000 mg Furosemide (Lasix) 20 mg IVP BID [facility] Stop: 08/18/17 08:59 Last Admin: 06/22/17 08:25 Dose: 20 mg Guaifenesin (Robitussin) 200 mg PO Q4HR PRN PRN Reason: Cough or Congestion Stop: 08/17/17 22:46 Heparin Sodium (Porcine) (Heparin) 5,000 units SUBQ Q12HR [facility] Stop: 08/18/17 08:59 Last Admin: 06/22/17 08:26 Dose: 5,000 units Dextrose/Sodium Chloride (D5-0.9%Ns) 1,000 mls @ 50 mls/hr IV .Q20H [facility] Stop: 08/17/17 21:44 Last Infusion: 06/21/17 22:24 Dose: 50 mls/hr Ipratropium [place] (Atrovent Neb 0.5mg/2.5ml) 0.5 mg IH Q2HR PRN PRN Reason: Shortness of Breath or Wheeze Stop: 08/17/17 21:43 Ipratropium [place] (Atrovent Neb 0.5mg/2.5ml) 0.5 mg IH QIDRT [facility] Stop: 08/18/17 06:59 Last Admin: 06/22/17 14:58 Dose: 0.5 mg Levothyroxine Sodium (Synthroid) 0.05 mg PO QDAC [facility] Stop: 08/18/17 07:29 Last Admin: 06/22/17 07:00 Dose: 0.05 mg Lorazepam (Ativan) 1 mg IV Q4HR PRN; Protocol PRN Reason: Anxiety Stop: 08/17/17 21:43 Last Admin: 06/21/17 23:21 Dose: 1 mg Magnesium Hydroxide (Milk Of Magnesia) 30 ml PO HS PRN PRN Reason: Constipation Stop: 08/17/17 21:40 Miscellaneous (Vte Chemical Prophylaxis Screen/ Admission) 1 ea [facility] PRN PRN PRN Reason: PROTOCOL Stop: 08/18/17 08:14 Multivitamins/Vitamin C (Theragran) 1 tab PO DAILY [facility] Stop: 08/18/17 08:59 Last Admin: 06/22/17 08:24 Dose: 1 tab Nitroglycerin (Nitrostat) 0.4 mg SL Q5MIN PRN PRN Reason: Chest Pain Stop: 08/17/17 22:46 Ondansetron HCl (Zofran) 4 mg IV Q8H PRN PRN Reason: Nausea / Vomiting Stop: 08/17/17 22:46 Potassium Chloride (Klor-Con) 20 meq PO DAILY [facility] Stop: 08/19/17 12:52 Last Admin: 06/22/17 08:24 Dose: 20 meq Simvastatin (Zocor) 20 mg PO HS [facility] Stop: 08/18/17 20:59 Last Admin: 06/21/17 20:49 Dose: 20 mg Tamsulosin HCl (Flomax) 0.4 mg PO HS [facility] Stop: 08/18/17 20:59 Last Admin: 06/21/17 20:49 Dose: 0.4 mg Theophylline (Oral-Dur) 100 mg PO BID [facility] Stop: 08/19/17 16:59 Last Admin: 06/22/17 08:26 Dose: 100 mg General: demented, bilateral temporal wasting, appears older HEENT: NC/AT, PERRLA Neck: Supple, No JVD Lungs: congested, rales, ronchi Cardiovascular: RRR, with murmur, dwayne Abdomen: soft, tender, globular, positive bowel sound Extremities: excoriation, deformity Neurological: no change, disorganized, unsteady, unable to follow command, bedbound - Procedures Procedures: Procedures Procedure Code Date OTHER GROUP THERAPY 94.44 08/12/14 Internal Medicine Assmt/Plan - Assessment Assessment: acute chf exac ble edema dehydration malnutrition gen weakness htn hyper chol oa hypothroidism dwayne, pacemaker dementia - Plan Plan: cont on lasix monitor renal function cpm [facility]
--- NOTE | 2017-06-22 18:24 | Discharge Summary ---
DATE OF DISCHARGE: 06/22/2017 DATE OF DISCHARGE: 06/22/2017. DISCHARGE DIAGNOSES: Acute congestive heart failure exacerbation, bilateral lower extremity pain, acute dehydration, mild protein calorie malnutrition, generalized weakness, hypertension, hyperlipidemia, hypothyroidism, arthritis, dementia. HISTORY OF PRESENT ILLNESS: This is an 86-year-old male, who is well known to me from [facility], brought to [facility] due to 3-day history of bilateral lower extremity swelling associated with redness and pain. PHYSICAL EXAMINATION: GENERAL: Elderly male, awake, alert, in no apparent distress. VITAL SIGNS: Stable. HEENT: Head normocephalic, atraumatic. NECK: Supple. No mass. LUNGS: Clear bilaterally. ABDOMEN: Soft, nontender. HOSPITAL COURSE: During the hospital stay, the patient was admitted to the telemetry unit. The patient had a cardiology consultation as well as psych consultation as well. The patient had a 2D echocardiogram done and the impression is minimal hypertrophy of the left ventricle, left atrial enlargement, ejection fraction of 50%. The patient's bilateral lower extremity swelling has resolved. For this reason, the patient is stable for discharge. CONDITION UPON DISCHARGE: Fair. DISPOSITION: [facility]. JOB# [id number]
== END 2017-06-22 18:50 | DRG 871 ==
LOC: ER 19:15 → TELE 21:00
PROVIDERS: ADMIT Internal Medicine; ATTEND Internal Medicine
DX: A41.9 Sepsis, unspecified organism (principal); I50.31 Acute diastolic (congestive) heart failure; E44.1 Mild protein-calorie malnutrition; F03.91 Unspecified dementia, unspecified severity, with behavioral disturbance; L03.116 Cellulitis of left lower limb; L03.115 Cellulitis of right lower limb; E86.0 Dehydration; E03.9 Hypothyroidism, unspecified; E78.5 Hyperlipidemia, unspecified; M19.90 Unspecified osteoarthritis, unspecified site; F17.210 Nicotine dependence, cigarettes, uncomplicated; I11.0 Hypertensive heart disease with heart failure; E78.00 Pure hypercholesterolemia, unspecified; I49.5 Sick sinus syndrome; F32.9 Major depressive disorder, single episode, unspecified; I25.10 Atherosclerotic heart disease of native coronary artery without angina pectoris; F20.9 Schizophrenia, unspecified; K59.09 Other constipation; I37.1 Nonrheumatic pulmonary valve insufficiency; I07.1 Rheumatic tricuspid insufficiency; F29 Unspecified psychosis not due to a substance or known physiological condition; Z68.25 Body mass index [BMI] 25.0-25.9, adult; Z95.0 Presence of cardiac pacemaker; Z88.2 Allergy status to sulfonamides; Z88.6 Allergy status to analgesic agent; Z80.8 Family history of malignant neoplasm of other organs or systems; Z82.49 Family history of ischemic heart disease and other diseases of the circulatory system
CPT/HCPCS: 36415-UA; 71045-TC; 80048-TC; 80053-TC; 81001-TC; 82140-TC; 82550-TC; 83036-90; 83605; 83735-TC; 83880-TC; 84484-TC; 85025-TC; 85610-TC; 85730-TC; 90732; 90779; 93005; 93970-TC-50; 94760; J0696; J1644; J1940; J2060; J7042; J7613; Z7610